=== PATIENT | male | born 1995 | race African-American/Black ===

== ENCOUNTER 2021-07-21 09:45 | Emergency (ER) | payer SELFPAY ==
[~2021-07-21] VITALS: Ht 182.9 cm; Wt 70.0 kg
[2021-07-21 09:45] VITALS: BP 120/81
[2021-07-21] MEDS ORDERED: ONDANSETRON ODT 4 MG TAB.RAPDIS PO ONE (10:00)
[2021-07-21] MEDS ORDERED: ACETAMINOPHEN 500 MG TABLET PO ONE (10:00)
[2021-07-21 10:23] LABS: INFLUENZA B PATIENT NEGATIVE (NEGATIVE)
[2021-07-21 10:30] LABS: INFLUENZA A PATIENT POSITIVE (NEGATIVE)
--- NOTE | 2021-07-21 10:53 | PHYS DOC ---
Adult General Chief Complaint Chief Complaint: GENERALIZED BODY ACHES HPI HPI Patient is a 25 year old male who presents with cough and body aches. The patient reports 2-day history of illness with generalized body aches, nonproductive cough, nasal congestion, rhinorrhea, sore throat. Denies chest pain or shortness of breath. Reports he vomited at least 5 times yesterday. Tolerating sips of clear liquids today. Denies associated abdominal pain or diarrhea. Denies any known sick contacts. He was not vaccinated for Covid or influenza. No significant past medical history. Review of Systems Review of Systems Constitutional: Reports subjective fever and chills Eyes: Denies change in visual acuity, redness, or eye pain HENT: Reports nasal congestion & sore throat Respiratory: Reports cough, denies shortness of breath Cardiovascular: Denies chest pain GI: Denies abdominal pain or diarrhea, reports nausea and vomiting : Denies dysuria Musculoskeletal: Denies back pain or joint pain, reports myalgias Integument: Denies rash Neurologic: Denies headache All other systems were reviewed and found to be within normal limits, except as documented in this note. Current Medications Current Medications Current Medications Medications (Trade) Dose Ordered Sig/Mick Start Time Stop Time Status Last Admin Dose Admin Acetaminophen (Tylenol) 1,000 mg 1X ONCE 07/21/21 10:00 07/21/21 10:04 DC 07/21/21 10:30 1,000 MG Ondansetron HCl (Zofran Odt) 4 mg 1X ONCE 07/21/21 10:00 07/21/21 10:04 DC 07/21/21 10:29 4 MG Allergies Allergies Allergies Coded Allergies Type Severity Reaction Last Updated Verified No Known Drug Allergies 07/21/21 No Physical Exam Physical Exam Constitutional: Well developed, well nourished, no acute distress, non-toxic appearance. HENT: Normocephalic, atraumatic, bilateral external ears normal, oropharynx moist, no tonsillar enlargement or exudate, posterior oropharynx mildly erythematous, nose normal. [] Eyes: conjunctiva normal, no discharge. Neck: No meningismus Cardiovascular: Regular rate and rhythm, no murmurs, no peripheral edema Lungs & Thorax: Lungs clear to auscultation bilaterally, no wheezing, no respiratory distress Abdomen: Soft, nontender, nondistended Skin: Warm, dry, no erythema, no rash. Back: No tenderness Extremities: No deformity, no edema Neurologic: Alert and oriented X 3 Psychologic: Affect normal Current Patient Data Vital Signs Vital Signs Date Time Temp Pulse Resp B/P (MAP) Pulse Ox O2 Delivery O2 Flow Rate FiO2 07/21/21 09:45 100.8 88 18 120/81 (94) 100 Room Air Lab Results Laboratory Tests Test 07/21/21 09:50 Influenza Type A (Rapid) Positive (NEGATIVE) *A Influenza Type B (Rapid) Negative (NEGATIVE) SARS-CoV-2 Antigen (Rapid) Negative (NEGATIVE) EKG EKG [] Radiology/Procedures Radiology/Procedures [] Heart Score C/O Chest Pain: No Risk Factors: Risk Factors: DM, Current or recent (<one month) smoker, HTN, HLP, family history of CAD, obesity. Risk Scores: Risk Factors: DM, Current or recent (<one month) smoker, HTN, HLP, family history of CAD, obesity. Course & Med Decision Making Course & Med Decision Making Pertinent Labs and Imaging studies reviewed. (See chart for details) Patient presents with upper respiratory illness and vomiting. Vitals stable, no focal findings on exam. Obtained rapid influenza and Covid testing, positive f or influenza A. Administered Tylenol and Zofran, no vomiting here. Also gave ibuprofen for myalgias. Discussed Tamiflu, do not recommend in this patient due to duration of illness, baseline health, and patient is already vomiting. Patient agrees with supportive care. Recommend rest, hydration, Tylenol and ibuprofen for pain or fever, prescriptions sent for Zofran, Tessalon Perles, Flonase, ibuprofen. Follow-up with primary care if not improving in 2 to 3 days. Return to the emergency department for high fever, severe chest pain or shortness of breath, dizziness, intractable vomiting, any otherwise worsening condition. Discharged home in stable condition. [] Dragon Disclaimer Dragon Disclaimer This electronic medical record was generated, in whole or in part, using a voice recognition dictation system. Departure Departure: Impression: Primary Impression: Influenza A Disposition: HOME / SELF CARE / HOMELESS Condition: STABLE Referrals: [facility] (PCP) Patient Instructions: Influenza A (H1N1) Additional Instructions: You were seen in the emergency department today and diagnosed with influenza A. This is a virus so most of the treatment is supportive care to help treat your symptoms. As we discussed, there is a medication called Tamiflu that helps some people, but based on how long you have been sick, your overall good health, and the fact that you are already vomiting, we do not recommend that in your case. Please rest, drink fluids to stay hydrated, use Tylenol or ibuprofen for pain or fever. I am sending prescriptions for Tessalon Perles to help with cough and Flonase to help with congestion, and Zofran for nausea. Follow-up with a primary care doctor if not improving in 2 to 3 days. Return to the emergency department for high fever, severe chest pain or shortness of breath, severe dizz iness, uncontrolled vomiting, any otherwise worsening condition. Scripts Ibuprofen (IBUPROFEN) 600 Mg Tablet 600 MG PO Q8HRS PRN for PAIN, #20 TAB Prov: MOHSEN PAYTON MD 07/21/21 Fluticasone Propionate (FLUTICASONE PROPIONATE NASAL SPRAY) 16 Gm [place].susp 2 SPR NS DAILY for congestion, #1 INHALER 0 Refills Prov: MOHSEN PAYTON MD 07/21/21 Benzonatate (BENZONATATE) 100 Mg Capsule 1 CAP PO TID for cough, #10 CAP Prov: MOHSEN PAYTON MD 07/21/21 Ondansetron (ONDANSETRON ODT) 4 Mg Tab.rapdis 1 TAB PO PRN Q8HRS PRN for NAUSEA, #10 TAB Prov: MOHSEN PAYTON MD 07/21/21 MOHSEN PAYTON MD Jul 21, 2021 10:53
[2021-07-21] MEDS ORDERED: IBUPROFEN 600 MG TABLET. PO ONE (11:00)
[2021-07-21] MEDS ORDERED: IBUP600T16 PO (11:03)
[2021-07-21] MEDS ORDERED: ONDA4TAB12 PO (11:03)
[2021-07-21] MEDS ORDERED: BENZ-8 PO (11:03)
[2021-07-21] MEDS ORDERED: FLUT16SP21 NS (11:03)
== END 2021-07-21 11:15 | disposition home or self-care (01) ==
LOC: ER 09:45
DX: J10.1 Influenza due to other identified influenza virus with other respiratory manifestations (principal); Z20.822 Contact with and (suspected) exposure to COVID-19
CPT/HCPCS: 87428; 99284; Q0162